=== PATIENT | female | born 1965 | race Caucasian/White ===

== ENCOUNTER 2021-06-25 07:48 | Observation (INO) ==
[2021-06-25] MEDS ORDERED: ONDANSETRON 4 MG/2 ML VIAL IV STA (09:03)
[2021-06-25] MEDS ORDERED: SODIUM CHLORIDE 0.9% 1,000 ML IV STA (09:03)
[2021-06-25 09:13] LABS: Basophils % 0.4 % (0.0-0.8); Eosinophils # 0.1 10*3/uL (0.0-0.87); Eosinophils % 0.5 % (0.00-10.9); Hemoglobin 13.1 GM/DL (12.0-16.0); Immature Granulocytes % 0.4 %; Immature Granulocytes Absolute 0.04 #; Lymphocytes # 2.1 10*3/uL (1.4-4.0); Lymphocytes % 21.3 % (21.3-54.2); Mean Corpuscular HGB Conc 32.8 GM/DL (32-36); Mean Corpuscular Volume 93.7 FL (87-102); Mean Platelet Volume 8.7 FL (9.6-12.0); Monocytes % 9.4 % (1.7-12.7); Platelet Count 287 T/CUMM (130-400); Red Blood Count 4.27 MC/CUMM (3.8-5.5); Red Cell Distribution Width 13.1 % (9.3-17.3)
[2021-06-25 09:23] LABS: Albumin 3.6 G/DL (3.4-5.0); Bilirubin,Total 0.5 MG/DL (0.20-1.00); Osmolality,Calculated 278.5 MOS/KG (273-304); Potassium 3.4 MMOL/L (3.5-5.1); Total Protein 7.6 G/DL (6.4-8.2)
[2021-06-25 09:39] LABS: PT Patient Result 11.1 SECS (10.5-12.0); Partial Thromboplastin Time 24.3 SECS (23.8-32.1)
[2021-06-25] MEDS ORDERED: KETOROLAC 30 MG/1 ML VIAL ONE (09:49)
[2021-06-25] MEDS ORDERED: KETOROLAC 30 MG/1 ML VIAL IV STA (09:52)
[2021-06-25] MEDS ORDERED: POTASSIUM CHLORIDE 20 MEQ TABLET PO STA (12:58)
[2021-06-25] MEDS ORDERED: ONDANSETRON 4 MG/2 ML VIAL IV PRN (14:42)
[2021-06-25] MEDS ORDERED: traMADol 50 MG TABLET PO PRN (15:10)
[2021-06-25] MEDS ORDERED: KETOROLAC 15 MG/1 ML VIAL IV PRN (15:10)
[2021-06-25] MEDS: ACETAMINOPHEN 325 MG TABLET PO PRN ×2 (15:35→21:05)
[2021-06-25] MEDS: SODIUM CHLORIDE 0.9% 1,000 ML IV SCH (15:35)
[2021-06-25] MEDS ORDERED: QUEtiapine 100 MG TABLET PO SCH (21:00)
[2021-06-25] MEDS: DOCUSATE SODIUM 100 MG CAPSULE PO SCH (21:01)
[2021-06-26] MEDS: SODIUM CHLORIDE 0.9% 1,000 ML IV SCH ×2 (02:40→15:10)
[2021-06-26 05:38] LABS: Basophils % 0.4 % (0.0-0.8); Eosinophils # 0.2 10*3/uL (0.0-0.87); Eosinophils % 2.5 % (0.00-10.9); Hematocrit 34.5 VOL% (35.7-47.0); Hemoglobin 11.4 GM/DL (12.0-16.0); Immature Granulocytes % 0.6 %; Immature Granulocytes Absolute 0.04 #; Lymphocytes # 2.7 10*3/uL (1.4-4.0); Lymphocytes % 38.3 % (21.3-54.2); Mean Corpuscular Volume 94.3 FL (87-102); Mean Platelet Volume 8.6 FL (9.6-12.0); Monocytes % 8.5 % (1.7-12.7); Neutrophils % 49.7 % (38.7-73.9); Platelet Count 240 T/CUMM (130-400); Red Blood Count 3.66 MC/CUMM (3.8-5.5); Red Cell Distribution Width 13.1 % (9.3-17.3); White Blood Count 7.2 T/CUMM (4-12)
[2021-06-26 05:52] LABS: Calcium 8.1 MG/DL (8.5-10.1); Osmolality,Calculated 283.1 MOS/KG (273-304); Potassium 3.8 MMOL/L (3.5-5.1)
[2021-06-26 05:59] LABS: Platelet Estimate Normal
[2021-06-26 06:01] LABS: Anisocytosis 1+
[2021-06-26] MEDS: DOCUSATE SODIUM 100 MG CAPSULE PO SCH (08:16)
[2021-06-26] MEDS ORDERED: LISDEXAMFETAMINE 50 MG PO SCH (09:00)
[2021-06-26] MEDS ORDERED: PANTOPRAZOLE 40 MG TABLET PO SCH (09:00)
[2021-06-26] MEDS ORDERED: TOPIRAMATE 200 MG TABLET PO SCH (09:00)
[2021-06-26 11:30] VITALS: BP 123/74
== END 2021-06-26 14:50 | disposition home or self-care (01) ==
LOC: N.ED 07:48 → N.EDINP 13:52 → INTOOBSV 13:52 → N.3E 14:23
PROVIDERS: ADMIT Family Medicine; ATTEND Family Medicine

== ENCOUNTER 2021-07-21 10:30 | Inpatient (IN) ==
[2021-07-20 15:50] LABS: Bacteria,Urine Moderate /HPF (Few); Bilirubin,Urine Negative (Negative); Blood, Urine Negative (Negative); Glucose,Urine (UA) Negative (Negative); Ketones,Urine Negative (Negative); Nitrite,Urine Negative (Negative); Protein,Urine Negative; RBC,Urine 1 /HPF (0-4); Squamous Epithelial Cell,Urine Few /HPF (0-10); Urine Appearance Slightly Hazy (Clear); Urine Color Yellow (Yellow); Urine Specific Gravity 1.006 (1.001-1.035); Urine Urobilinogen < 2.0 EU/DL (<2.0)
[~2021-07-21 10:30] MED LIST: AMPICILLIN/SULBACTAM 3,000 MG in SODIUM CHLORIDE 0.9% 100 ML IV ONE
[2021-07-21] MEDS ORDERED: LACTATED RINGERS 1,000 ML IV SCH (11:30)
[2021-07-21] MEDS ORDERED: DIAZEPAM 5 MG TABLET PO ONE (13:22)
[2021-07-21] MEDS ORDERED: FAMOTIDINE 20 MG TABLET PO ONE (13:22)
[2021-07-21] MEDS ORDERED: ONDANSETRON 4 MG/2 ML VIAL ONE (13:55)
[2021-07-21] MEDS ORDERED: fentaNYL 100 MCG/2 ML VIAL ONE ×2 (13:55→14:25)
[2021-07-21] MEDS ORDERED: ROCURONIUM 50 MG/5 ML VIAL IV ONE (13:55)
[2021-07-21] MEDS ORDERED: propofoL 200 MG/20 ML VIAL IV ONE (13:55)
[2021-07-21] MEDS ORDERED: MIDAZOLAM 2 MG/2 ML VIAL ONE (13:55)
[2021-07-21] MEDS ORDERED: DESFLURANE 1 UNIT/15 MINUTE INH ONE ×2 (13:55→15:24)
[2021-07-21] MEDS ORDERED: LIDOCAINE 2% 5 ML VIAL ONE (13:55)
[2021-07-21] MEDS ORDERED: DEXAMETHASONE 4 MG/1 ML VIAL ONE (14:20)
[2021-07-21] MEDS ORDERED: KETOROLAC 30 MG/1 ML VIAL ONE (15:05)
[2021-07-21] MEDS ORDERED: NEOSTIGMINE 10 MG/10 ML VIAL ONE (15:11)
[2021-07-21] MEDS ORDERED: GLYCOPYRROLATE 0.4 MG/2 ML VIAL ONE (15:11)
[2021-07-21] MEDS ORDERED: ONDANSETRON 4 MG/2 ML VIAL IV PRN ×2 (15:28→15:44)
[2021-07-21] MEDS ORDERED: BISACODYL 10 MG SUPP RECTAL PRN (15:28)
[2021-07-21] MEDS ORDERED: ACETAMINOPHEN 325 MG TABLET PO PRN (15:28)
[2021-07-21] MEDS ORDERED: BENZOCAINE/MENTHOL LOZENGE 18/BOX PO PRN (15:28)
[2021-07-21] MEDS ORDERED: HYDROmorphone 2 MG/1 ML VIAL ONE (15:40)
[2021-07-21] MEDS: HYDROmorphone 2 MG/1 ML VIAL IV PRN ×3 (15:40→16:00)
[2021-07-21 15:49] LABS: Bilirubin,Urine Negative (Negative); Blood, Urine Negative (Negative); Glucose,Urine (UA) Negative (Negative); Ketones,Urine Negative (Negative); Mucus,Urine Occasional /LPF (Occasional); Nitrite,Urine Negative (Negative); Protein,Urine Negative; RBC,Urine <1 /HPF (0-4); Urine Appearance CLEAR (Clear); Urine Color Yellow (Yellow); Urine Specific Gravity 1.016 (1.001-1.035); Urine Urobilinogen < 2.0 EU/DL (<2.0)
[2021-07-21] MEDS: LACTATED RINGERS 1,000 ML IV SCH (16:26)
[2021-07-21] MEDS ORDERED: HYDROmorphone 2 MG/1 ML VIAL IV PRN (16:47)
[2021-07-21] MEDS ORDERED: MEPERIDINE 25 MG/1 ML VIAL IV PRN (16:51)
[2021-07-21] MEDS ORDERED: MEPERIDINE 50 MG/1 ML VIAL ONE (16:56)
[2021-07-21] MEDS: QUEtiapine 100 MG TABLET PO SCH (21:18)
[2021-07-22] MEDS: IBUPROFEN 800 MG TABLET PO PRN ×2 (00:02→18:07)
[2021-07-22] MEDS: SIMETHICONE CHEW 80 MG TABLET PO PRN ×2 (00:02→10:36)
[2021-07-22] MEDS: LACTATED RINGERS 1,000 ML IV SCH (00:05)
[2021-07-22 05:42] LABS: Basophils % 0.2 % (0.0-0.8); Hematocrit 30.4 VOL% (35.7-47.0); Immature Granulocytes % 0.6 %; Immature Granulocytes Absolute 0.06 #; Lymphocytes # 2.2 10*3/uL (1.4-4.0); Lymphocytes % 23.6 % (21.3-54.2); Mean Corpuscular HGB Conc 32.9 GM/DL (32-36); Mean Corpuscular Volume 94.4 FL (87-102); Mean Platelet Volume 8.9 FL (9.6-12.0); Monocytes % 9.8 % (1.7-12.7); Neutrophils % 65.8 % (38.7-73.9); Platelet Count 239 T/CUMM (130-400); Red Blood Count 3.22 MC/CUMM (3.8-5.5); White Blood Count 9.5 T/CUMM (4-12)
[2021-07-22] MEDS: MAGNESIUM HYDROXIDE SUSP 30 ML UDCUP PO PRN ×2 (10:37→23:57)
[2021-07-22] MEDS: DOCUSATE SODIUM 100 MG CAPSULE PO PRN ×2 (10:37→20:43)
[2021-07-22] MEDS: TOPIRAMATE 200 MG TABLET PO SCH (10:37)
[2021-07-22] MEDS: QUEtiapine 100 MG TABLET PO SCH (20:44)
[2021-07-23 07:19] VITALS: BP 95/53
[2021-07-23] MEDS: TOPIRAMATE 200 MG TABLET PO SCH (08:36)
== END 2021-07-23 10:15 | disposition home or self-care (01) | DRG 983 ==
LOC: N.OR 10:30 → N.SDSINP 10:30 → EDSTATUS 13:45 → N.SDSINP 15:27 → N.OB 16:53
PROVIDERS: ADMIT Obstetrics & Gynecology; ATTEND Obstetrics & Gynecology